=== PATIENT | female | born 1950 ===

== ENCOUNTER 2020-09-11 08:33 | Day surgery (SDC) | payer OTHER ==
[~2020-09-11 08:33] MED LIST: DAFLO PO
== END 2020-09-11 18:10 | disposition home or self-care (01) ==
LOC: CIR.AMB 08:33
PROVIDERS: ATTEND Colon & Rectal Surgery
DX: K64.4 Residual hemorrhoidal skin tags (principal); Z20.822 Contact with and (suspected) exposure to COVID-19